=== PATIENT | male | born 1965 | race Caucasian/White ===

== ENCOUNTER → 2016-12-01 | Outpatient (CLI) | payer OTHER ==
[~2016-12-01] MED LIST: ALLOPURINOL100 MG PO; AMLODIPINE BESY10 MG PO; DIOVAN320 MG PO
== END | disposition home or self-care (01) ==
LOC: AMB 11-27 14:00
DX: Z12.11 Encounter for screening for malignant neoplasm of colon (principal); C20 Malignant neoplasm of rectum; K62.1 Rectal polyp; K63.5 Polyp of colon; K62.5 Hemorrhage of anus and rectum; Z87.891 Personal history of nicotine dependence; E88.81 Metabolic syndrome and other insulin resistance; E78.5 Hyperlipidemia, unspecified; E66.3 Overweight; Z68.28 Body mass index [BMI] 28.0-28.9, adult; Z91.09 Other allergy status, other than to drugs and biological substances
CPT/HCPCS: 88305; J2250; J3010

== ENCOUNTER → 2016-12-14 | Outpatient (CLI) | payer OTHER ==
[~2016-12-14] VITALS: Ht 175.3 cm; Wt 84.1 kg
[~2016-12-14] MED LIST changes: +ATIVAN0.5 MG PO; +FLONASE ALLERG9.9 ML BOTH NARES; +ONE DAILY FOR1 EACH PO
== END | disposition home or self-care (01) ==
LOC: AMB 10:50
DX: C20 Malignant neoplasm of rectum (principal); E88.81 Metabolic syndrome and other insulin resistance; E78.5 Hyperlipidemia, unspecified; I10 Essential (primary) hypertension; E66.3 Overweight; Z68.28 Body mass index [BMI] 28.0-28.9, adult; Z87.891 Personal history of nicotine dependence; Z91.09 Other allergy status, other than to drugs and biological substances
CPT/HCPCS: 93005; C1726; J2250

== ENCOUNTER 2017-05-22 06:54 | Day surgery (SDC) | payer OTHER ==
[~2017-05-22] VITALS: Ht 174 cm; Wt 77.0 kg
[~2017-05-22 06:54] MED LIST changes: +ANTI-DIARRHEA2 MG PO; +INDOMETHACIN50 MG PO
[2017-05-28] MEDS ORDERED: ZOFRAN8 MG PO (09:15)
[2017-05-28] MEDS ORDERED: COMPAZINE10 MG PO (09:16)
== END 2017-05-22 10:00 | disposition home or self-care (01) ==
LOC: CATH 06:54
DX: I87.2 Venous insufficiency (chronic) (peripheral) (principal); C20 Malignant neoplasm of rectum; I12.9 Hypertensive chronic kidney disease with stage 1 through stage 4 chronic kidney disease, or unspecified chronic kidney disease; N18.9 Chronic kidney disease, unspecified; E78.00 Pure hypercholesterolemia, unspecified; Z87.891 Personal history of nicotine dependence
CPT/HCPCS: C1752; C1894; J0690; J1644; J2250; J3010; S0020

== ENCOUNTER → 2017-11-28 | Outpatient (CLI) | payer OTHER ==
[~2017-11-28] MED LIST changes: +COMPAZINE10 MG PO; +DIPHENOXYLATE/1 EACH PO; +ZOFRAN8 MG PO
== END | disposition home or self-care (01) ==
LOC: CDC 10:28
DX: Z01.810 Encounter for preprocedural cardiovascular examination (principal); C20 Malignant neoplasm of rectum
CPT/HCPCS: 93000